=== PATIENT | male | born 1955 | race African-American/Black ===

== ENCOUNTER 2017-12-13 13:13 | Emergency (ER) | payer OTHER ==
[~2017-12-13] VITALS: Ht 188 cm; Wt 113.6 kg
[2017-12-13] MEDS ORDERED: SIMV-259 PO (13:28)
[2017-12-13] MEDS ORDERED: HYDR25TA PO (13:28)
[2017-12-13 15:18] LABS: BASOPHILS % (AUTO) 0.7 % (0.0-2.0); EOSINOPHILS % (AUTO) 0.9 % (1.0-6.0); HEMATOCRIT 48.2 % (41-53); HEMOGLOBIN 16.1 g/dL (13.5-17.5); LYMPHOCYTES # (AUTO) 1.4 K/uL (1.0-4.8); LYMPHOCYTES % (AUTO) 18.7 % (22.0-44.0); MEAN CORPUSCULAR HEMOGLOBIN 31.1 pg (26.0-34.0); MEAN CORPUSCULAR HGB CONC 33.5 G/dL (31.0-37.0); MEAN CORPUSCULAR VOLUME 93 fL (80-100); MONOCYTES # (AUTO) 0.7 K/uL (0.1-1.0); MONOCYTES % (AUTO) 9.2 % (2.0-9.0); NEUTROPHILS # (AUTO) 5.3 K/uL (1.8-7.7); NEUTROPHILS % (AUTO) 70.5 % (40.0-70.0); PLATELET COUNT (AUTO) 268 K/uL (150-450); RED BLOOD CELL COUNT(AUTO) 5.19 MIL/uL (4.50-5.90)
[2017-12-13 15:25] LABS: ANION GAP 8 mmol/L (8-16); CARBON DIOXIDE 29 mmol/L (22-29); CHLORIDE 103 mmol/L (98-107); CREATININE 1.32 mg/dL (0.60-1.30); GLOMERULAR FILTR. RATE CALC > 60 mL/min (>60); GLUCOSE,RANDOM 89 mg/dL (70-110); POTASSIUM 4.4 mmol/L (3.5-5.1); SODIUM SERUM 140 mmol/L (136-145); UREA NITROGEN, BLOOD 15 mg/dL (7-18)
[2017-12-13 15:31] LABS: ALANINE AMINOTRANSFERASE 24 U/L (12-78); ALBUMIN 3.6 g/dL (3.4-5.0); ALKALINE PHOSPHATASE 72 U/L (46-116); ASPARTATE AMINOTRANSFERASE 17 U/L (15-37); BILIRUBIN,TOTAL 0.5 mg/dL (0.1-1.0); TOTAL PROTEIN, SERUM 7.7 g/dL (6.4-8.2)
[2017-12-13 20:05] VITALS: BP 123/75
== END 2017-12-13 20:13 | disposition home or self-care (01) ==
LOC: EMS 13:14
DX: K64.8 Other hemorrhoids (principal); K64.4 Residual hemorrhoidal skin tags; I10 Essential (primary) hypertension; E78.00 Pure hypercholesterolemia, unspecified
CPT/HCPCS: 99284

== ENCOUNTER 2020-01-06 07:56 | Emergency (ER) | payer OTHER ==
[~2020-01-06] VITALS: Ht 188 cm; Wt 113.6 kg
[~2020-01-06 07:56] MED LIST: HYDR-1475 PO; SIMV-259 PO
[2020-01-06] MEDS ORDERED: ATOR10TA84 PO (07:59)
[2020-01-06] MEDS ORDERED: NAPROXEN 250 MG TABLET PO ONE (08:30)
[2020-01-06 09:20] VITALS: BP 133/82
== END 2020-01-06 09:29 | disposition home or self-care (01) ==
LOC: EMS 08:05
DX: M72.2 Plantar fascial fibromatosis (principal); E78.00 Pure hypercholesterolemia, unspecified; I10 Essential (primary) hypertension; F17.210 Nicotine dependence, cigarettes, uncomplicated; F12.90 Cannabis use, unspecified, uncomplicated

== ENCOUNTER 2020-10-13 17:33 | Emergency (ER) | payer OTHER ==
[~2020-10-13] VITALS: Ht 188 cm; Wt 109.1 kg
[~2020-10-13 17:33] MED LIST changes: +ATOR10TA84 PO; -HYDR-1475 PO; +HYDR25TA2 PO; -SIMV-259 PO
[2020-10-13 17:39] VITALS: BP 149/85
[2020-10-13] MEDS ORDERED: IBUPROFEN 600 MG TABLET PO ONE (18:30)
== END 2020-10-13 19:08 | disposition home or self-care (01) ==
LOC: EMS 17:34
DX: S29.012A Strain of muscle and tendon of back wall of thorax, initial encounter (principal); I10 Essential (primary) hypertension; E78.00 Pure hypercholesterolemia, unspecified; F17.210 Nicotine dependence, cigarettes, uncomplicated; F12.90 Cannabis use, unspecified, uncomplicated; V49.9XXA Car occupant (driver) (passenger) injured in unspecified traffic accident, initial encounter; Y93.89 Activity, other specified; Y92.488 Other paved roadways as the place of occurrence of the external cause; Y99.8 Other external cause status
CPT/HCPCS: 72070; 99283

== ENCOUNTER 2021-02-14 20:29 | Emergency (ER) | payer OTHER ==
[~2021-02-14] VITALS: Ht 188 cm; Wt 109.1 kg
[2021-02-14] MEDS ORDERED: ACETAMINOPHEN 500 MG TABLET PO ONE (22:30)
[2021-02-15 00:55] VITALS: BP 160/84
== END 2021-02-15 00:50 | disposition home or self-care (01) ==
LOC: EMS 20:30
DX: S46.812A Strain of other muscles, fascia and tendons at shoulder and upper arm level, left arm, initial encounter (principal); S09.90XA Unspecified injury of head, initial encounter; W01.0XXA Fall on same level from slipping, tripping and stumbling without subsequent striking against object, initial encounter; Y93.89 Activity, other specified; Y92.89 Other specified places as the place of occurrence of the external cause; Y99.8 Other external cause status; I10 Essential (primary) hypertension; E78.00 Pure hypercholesterolemia, unspecified; F17.210 Nicotine dependence, cigarettes, uncomplicated; F12.90 Cannabis use, unspecified, uncomplicated
CPT/HCPCS: 70450; 72125; 99284

== ENCOUNTER 2021-02-16 08:57 | Emergency (ER) | payer OTHER ==
[~2021-02-16] VITALS: Ht 188 cm; Wt 109.1 kg
[2021-02-16 08:58] VITALS: BP 155/87
== END 2021-02-16 09:32 | disposition home or self-care (01) ==
LOC: EMS 08:59
DX: S46.912A Strain of unspecified muscle, fascia and tendon at shoulder and upper arm level, left arm, initial encounter (principal); S29.012A Strain of muscle and tendon of back wall of thorax, initial encounter; Z79.899 Other long term (current) drug therapy; I10 Essential (primary) hypertension; E78.00 Pure hypercholesterolemia, unspecified; F12.90 Cannabis use, unspecified, uncomplicated; F17.210 Nicotine dependence, cigarettes, uncomplicated; W18.39XA Other fall on same level, initial encounter; Y93.89 Activity, other specified; Y92.89 Other specified places as the place of occurrence of the external cause; Y99.8 Other external cause status
CPT/HCPCS: 99281; Z7502

== ENCOUNTER 2021-03-15 10:03 | Emergency (ER) | payer OTHER ==
[~2021-03-15] VITALS: Ht 188 cm; Wt 109.1 kg
[2021-03-15 10:21] VITALS: BP 155/83
[2021-03-15] MEDS ORDERED: LIDOCAINE 5% TRANSDERMAL PATCH TD ONE (11:45)
== END 2021-03-15 11:55 | disposition home or self-care (01) ==
LOC: EMS 10:48
DX: S29.012A Strain of muscle and tendon of back wall of thorax, initial encounter (principal); I10 Essential (primary) hypertension; E78.00 Pure hypercholesterolemia, unspecified; F12.90 Cannabis use, unspecified, uncomplicated; F17.210 Nicotine dependence, cigarettes, uncomplicated; Z79.899 Other long term (current) drug therapy; W18.39XA Other fall on same level, initial encounter; Y93.89 Activity, other specified; Y92.89 Other specified places as the place of occurrence of the external cause; Y99.8 Other external cause status
CPT/HCPCS: 99282; Z7502; Z7610

== ENCOUNTER 2021-05-20 19:38 | Emergency (ER) | payer OTHER ==
[~2021-05-20] VITALS: Ht 188 cm; Wt 109.1 kg
[2021-05-20 19:51] VITALS: BP 130/85
[2021-05-20] MEDS ORDERED: CYCL10TA16 PO (19:53)
[2021-05-20] MEDS ORDERED: LIDOCAINE 5% TRANSDERMAL PATCH TD ONE (20:15)
[2021-05-20] MEDS ORDERED: KETOROLAC TROMETHAMINE 30 MG/ML VIAL IM ONE (20:15)
[2021-05-20] MEDS ORDERED: ACETAMINOPHEN 500 MG TABLET PO ONE (20:15)
[2021-05-20 20:36] LABS: BASOPHILS % (AUTO) 0.4 % (0.0-2.0); HEMATOCRIT 47.3 % (41-53); HEMOGLOBIN 15.9 g/dL (13.5-17.5); LYMPHOCYTES # (AUTO) 1.4 K/uL (1.0-4.8); LYMPHOCYTES % (AUTO) 16.4 % (22.0-44.0); MEAN CORPUSCULAR HEMOGLOBIN 31.6 pg (26.0-34.0); MEAN CORPUSCULAR HGB CONC 33.6 G/dL (31.0-37.0); MEAN CORPUSCULAR VOLUME 94 fL (80-100); MONOCYTES # (AUTO) 0.9 K/uL (0.1-1.0); MONOCYTES % (AUTO) 10.9 % (2.0-9.0); NEUTROPHILS # (AUTO) 6.1 K/uL (1.8-7.7); NEUTROPHILS % (AUTO) 71.3 % (40.0-70.0); PLATELET COUNT (AUTO) 215 K/uL (150-450); RED BLOOD CELL COUNT(AUTO) 5.04 MIL/uL (4.50-5.90)
[2021-05-20 20:48] LABS: CALCIUM, TOTAL 8.9 mg/dL (8.8-10.5); CREATININE 1.71 mg/dL (0.60-1.30); POTASSIUM 3.3 mmol/L (3.5-5.1)
[2021-05-20 20:53] LABS: ALBUMIN 3.5 g/dL (3.4-5.0); BILIRUBIN,TOTAL 0.6 mg/dL (0.1-1.0); TOTAL PROTEIN, SERUM 7.2 g/dL (6.4-8.2)
[2021-05-20] MEDS ORDERED: LIDO700A15 TP (21:34)
== END 2021-05-20 22:02 | disposition home or self-care (01) ==
LOC: EMS 19:44
DX: M54.16 Radiculopathy, lumbar region (principal); I10 Essential (primary) hypertension; E78.00 Pure hypercholesterolemia, unspecified; F12.90 Cannabis use, unspecified, uncomplicated; F17.210 Nicotine dependence, cigarettes, uncomplicated; Z79.899 Other long term (current) drug therapy
CPT/HCPCS: 36415; 80053; 82550; 82962; 85025; 96372; 99283; J1885